=== PATIENT | male | born 1975 | race Caucasian/White ===

== ENCOUNTER 2022-06-13 20:02 | Emergency (ER) | payer OTHER ==
[~2022-06-13] VITALS: Ht 188 cm; Wt 102.3 kg
[2022-06-13] MEDS ORDERED: TETRAcaine 0.5% ophthalmic drops 15ml EACHEYE ONE (22:05)
[2022-06-13] MEDS ORDERED: POLOS LEFTEYE (22:22)
[2022-06-13 22:31] VITALS: BP 147/108
== END 2022-06-13 22:58 | disposition home or self-care (01) ==
LOC: ER 20:02
DX: S05.01XA Injury of conjunctiva and corneal abrasion without foreign body, right eye, initial encounter (principal); X58.XXXA Exposure to other specified factors, initial encounter; Y93.89 Activity, other specified; Y92.89 Other specified places as the place of occurrence of the external cause; Y99.8 Other external cause status
CPT/HCPCS: 99283